=== PATIENT | female | born 1955 | race African-American/Black ===

== ENCOUNTER 2017-04-21 14:16 | Emergency (ER) | payer OTHER ==
[~2017-04-21] VITALS: Ht 152.4 cm; Wt 64.0 kg
[~2017-04-21 14:16] MED LIST: DIAZEPAM; FENTANYL; OMEPRAZOLE; VALIUM; VICODIN
[2017-04-21 14:31] VITALS: BP 130/83
== END 2017-04-21 19:19 | disposition left against medical advice (07) ==
LOC: ER 14:16
DX: G89.29 Other chronic pain (principal); M54.9 Dorsalgia, unspecified; Z53.21 Procedure and treatment not carried out due to patient leaving prior to being seen by health care provider

== ENCOUNTER 2017-05-11 20:57 | Emergency (ER) | payer OTHER ==
[~2017-05-11] VITALS: Ht 154.9 cm; Wt 63.0 kg
[2017-05-12] MEDS ORDERED: ONDANSETRON 4MG ODT PO STA (02:56)
[2017-05-12] MEDS ORDERED: KETOROLAC 30MG/ML VIAL IM STA (02:56)
[2017-05-12 03:36] LABS: BASOPHILS % 0.9 % (0.0-2.0); EOSINOPHILS % 1.3 % (0.0-5.0); HEMATOCRIT. 34.8 % (36.0-48.0); HEMOGLOBIN. 11.9 g/dL (12.0-16.0); LYMPHOCYTES % 26.8 % (20.0-50.0); MEAN CORPUSCULAR HEMOGLOBIN 30.5 pg (28.0-32.0); MEAN CORPUSCULAR VOLUME 89.5 fL (81.0-99.0); MONOCYTES % 5.4 % (2.0-8.0); NEUTROPHILS % 65.6 % (40.0-76.0); PLATELET 294 x1000/uL (130-400); RED BLOOD CELL COUNT 3.89 mill/uL (4.2-5.4); RED CELL DISTRIBUTION WIDTH 13.6 % (11.6-14.6)
[2017-05-12 03:43] LABS: PROTHROMBIN TIME 10.8 sec (9.4-11.6)
[2017-05-12 03:51] LABS: CARBON DIOXIDE 32 mEq/L (21-32); CHLORIDE 107 mEq/L (98-107)
[2017-05-12 04:02] LABS: CLARITY URINE CLEAR (CLEAR); COLOR URINE YELLOW (YELLOW); GLUCOSE URINE NEGATIVE (NEGATIVE); KETONES URINE NEGATIVE (NEGATIVE); LEUKOCYTE ESTERASE URINE TRACE (NEGATIVE); NITRITE URINE NEGATIVE (NEGATIVE); OCCULT BLOOD URINE NEGATIVE (NEGATIVE); PH URINE 6.5 (4.5-8.0); PROTEIN URINE NEGATIVE (NEGATIVE); SPECIFIC GRAVITY URINE 1.013 (1.005-1.030)
[2017-05-12] MEDS ORDERED: HYDROCODONE/ACETAMINOPHEN 10/325MG TABLET PO ONE (06:30)
[2017-05-12 09:33] VITALS: BP 162/82
== END 2017-05-12 09:35 | disposition home or self-care (01) ==
LOC: ER 20:57
DX: M54.2 Cervicalgia (principal); G89.29 Other chronic pain; M70.51 Other bursitis of knee, right knee; K58.9 Irritable bowel syndrome, unspecified; M79.89 Other specified soft tissue disorders; I10 Essential (primary) hypertension; F32.9 Major depressive disorder, single episode, unspecified; G62.9 Polyneuropathy, unspecified; Z98.890 Other specified postprocedural states; Y93.89 Activity, other specified
CPT/HCPCS: 36415; 80053; 81001; 85025; 85610; 93005; 93971; 96372; 99285; J1885; Q0162

== ENCOUNTER 2017-05-19 12:18 | Inpatient (IN) | payer OTHER ==
[~2017-05-19] VITALS: Ht 154.9 cm; Wt 64.0 kg
[2017-05-19 13:11] LABS: BASOPHILS % 0.6 % (0.0-2.0); EOSINOPHILS % 0.6 % (0.0-5.0); HEMATOCRIT. 37.6 % (36.0-48.0); HEMOGLOBIN. 12.9 g/dL (12.0-16.0); LYMPHOCYTES % 24.7 % (20.0-50.0); MEAN CORPUSCULAR HEMOGLOBIN 30.9 pg (28.0-32.0); MEAN CORPUSCULAR VOLUME 90.1 fL (81.0-99.0); MEAN PLATELET VOLUME 7.1 fl (7.4-10.4); MONOCYTES % 5.9 % (2.0-8.0); NEUTROPHILS % 68.2 % (40.0-76.0); PLATELET 342 x1000/uL (130-400); RED BLOOD CELL COUNT 4.17 mill/uL (4.2-5.4); RED CELL DISTRIBUTION WIDTH 14.1 % (11.6-14.6)
[2017-05-19 13:19] LABS: PROTHROMBIN TIME 10.7 sec (9.4-11.6)
[2017-05-19 13:23] LABS: CARBON DIOXIDE 27 mEq/L (21-32); CHLORIDE 106 mEq/L (98-107)
[2017-05-19 13:29] LABS: TROPONIN I 0.05 ng/mL (0.00-0.04)
[2017-05-19] MEDS ORDERED: DIPHENHYDRAMINE 50MG/ML VIAL IV PRN (15:15)
[2017-05-19] MEDS ORDERED: MAGNESIUM/ALUMINUM HYDROXIDE/SIMETHICONE 30ML UDC PO PRN (15:15)
[2017-05-19] MEDS ORDERED: CLONIDINE 0.1MG TABLET PO PRN (15:15)
[2017-05-19] MEDS ORDERED: DOCUSATE SODIUM 100MG CAPSULE PO PRN (15:15)
[2017-05-19] MEDS ORDERED: POTASSIUM CHLORIDE 20MEQ TABLET SR PO ONE (15:15)
[2017-05-19] MEDS ORDERED: ONDANSETRON HCL 4MG/2ML VIAL IV PRN (15:15)
[2017-05-19] MEDS ORDERED: GUAIFENESIN 200MG/10ML SUGAR FREE UDC PO PRN (15:15)
[2017-05-19] MEDS ORDERED: IPRATROPIUM/ALBUTEROL 0.5-3(2.5)MG/3ML NEB INH PRN (15:15)
[2017-05-19] MEDS: MORPHINE SULFATE 4 MG/ML CPJ (NOT FOR IM USE) IV PRN (15:32)
[2017-05-19 18:00] VITALS: BP 138/75
[2017-05-19 20:00] VITALS: BP 122/72
[2017-05-19] MEDS ORDERED: NA PHOS,M-B/NA PHOS,DI-BA ENEMA 118ML PR PRN (20:30)
[2017-05-19] MEDS ORDERED: ALPR0.25 PO (21:22)
[2017-05-19] MEDS ORDERED: AMLO10TA80 PO (21:22)
[2017-05-19] MEDS ORDERED: OMEP20TA15 PO (21:22)
[2017-05-19] MEDS ORDERED: TRIA1TAB94 PO (21:22)
[2017-05-19] MEDS ORDERED: FLUO20CA33 PO (21:22)
[2017-05-19] MEDS ORDERED: DIAZ10TA PO (21:22)
[2017-05-19] MEDS ORDERED: FENT1PAT4 TD (21:22)
[2017-05-19] MEDS ORDERED: HYDR-522 PO (21:22)
[2017-05-19] MEDS ORDERED: GABA-531 PO (21:22)
[2017-05-19] MEDS: SUCRALFATE 1 G/10 ML UDC PO SCH (22:26)
[2017-05-19] MEDS: TRAMADOL 50MG TABLET PO PRN (22:27)
[2017-05-19] MEDS: METOPROLOL TARTRATE 25MG TABLET PO SCH (22:27)
[2017-05-19] MEDS: ENOXAPARIN 40MG/0.4ML SYR SUBCUT SCH (22:28)
[2017-05-19] MEDS: FAMOTIDINE 20MG/2ML VIAL IV SCH (22:28)
[2017-05-19] MEDS: LORAZEPAM 2MG/ML CPJ IV PRN (23:44)
[2017-05-20] VITALS: BP 128/84
[2017-05-20 04:00] VITALS: BP 138/84
[2017-05-20] MEDS: MORPHINE SULFATE 4 MG/ML CPJ (NOT FOR IM USE) IV PRN ×5 (04:13→22:46)
[2017-05-20 04:49] LABS: *AMPHETAMINES SCREEN URINE NEGATIVE (NEGATIVE); *BARBITURATES SCREEN URINE NEGATIVE (NEGATIVE); *BENZODIAZEPINES SCREEN URINE PRESUMTIVE POSITIVE (NEGATIVE); *COCAINE SCREEN URINE NEGATIVE (NEGATIVE); CANNABINOID URINE SCREEN NEGATIVE (NEGATIVE); METHADONE URINE SCREEN NEGATIVE (NEGATIVE); OPIATES URINE SCREEN PRESUMTIVE POSITIVE (NEGATIVE); PHENCYCLIDINE URINE SCREEN NEGATIVE (NEGATIVE)
[2017-05-20 08:00] VITALS: BP 128/77
[2017-05-20 08:04] LABS: CREATINE KINASE MB FRACTION 1.7 ng/mL (0.5-3.6); TROPONIN I 0.05 ng/mL (0.00-0.04)
[2017-05-20] MEDS: SUCRALFATE 1 G/10 ML UDC PO SCH ×4 (08:34→21:18)
[2017-05-20] MEDS: AMLODIPINE 2.5MG TABLET PO SCH ×2 (08:36→08:38)
[2017-05-20] MEDS: POTASSIUM CHLORIDE 20MEQ TABLET SR PO SCH ×3 (08:36→16:33)
[2017-05-20] MEDS: ASPIRIN 325MG EC TABLET PO SCH (08:36)
[2017-05-20] MEDS: FAMOTIDINE 20MG/2ML VIAL IV SCH ×2 (08:36→21:19)
[2017-05-20] MEDS: METOPROLOL TARTRATE 25MG TABLET PO SCH (08:37)
[2017-05-20 12:00] VITALS: BP 130/79
[2017-05-20 13:19] LABS: BASOPHILS % 2.9 % (0.0-2.0); HEMATOCRIT. 34.8 % (36.0-48.0); HEMOGLOBIN. 11.6 g/dL (12.0-16.0); LYMPHOCYTES % 32.4 % (20.0-50.0); MEAN CORPUSCULAR HEMOGLOBIN 30.3 pg (28.0-32.0); MEAN PLATELET VOLUME 7.8 fl (7.4-10.4); MONOCYTES % 6.4 % (2.0-8.0); NEUTROPHILS % 57.3 % (40.0-76.0); PLATELET 304 x1000/uL (130-400); RED BLOOD CELL COUNT 3.83 mill/uL (4.2-5.4); RED CELL DISTRIBUTION WIDTH 14.3 % (11.6-14.6)
[2017-05-20 16:00] VITALS: BP 140/70
[2017-05-20 16:23] LABS: CARBON DIOXIDE 26 mEq/L (21-32); CHLORIDE 108 mEq/L (98-107)
[2017-05-20] MEDS: TRAMADOL 50MG TABLET PO PRN ×2 (17:16→21:19)
[2017-05-20 20:00] VITALS: BP 169/98
[2017-05-20] MEDS: AMLODIPINE 5MG TABLET PO SCH (21:18)
[2017-05-20] MEDS: ATORVASTATIN CALCIUM 10MG TABLET PO SCH (21:19)
[2017-05-20] MEDS: ENOXAPARIN 40MG/0.4ML SYR SUBCUT SCH (21:20)
[2017-05-21] VITALS: BP 150/88
[2017-05-21] MEDS: LORAZEPAM 2MG/ML CPJ IV PRN (00:29)
[2017-05-21 04:00] VITALS: BP 129/86
[2017-05-21 06:07] LABS: BASOPHILS % 0.7 % (0.0-2.0); EOSINOPHILS % 1.1 % (0.0-5.0); HEMATOCRIT. 34.9 % (36.0-48.0); HEMOGLOBIN. 11.8 g/dL (12.0-16.0); MEAN CORPUSCULAR HEMOGLOBIN 30.5 pg (28.0-32.0); MEAN CORPUSCULAR VOLUME 90.2 fL (81.0-99.0); MEAN PLATELET VOLUME 7.4 fl (7.4-10.4); MONOCYTES % 6.3 % (2.0-8.0); NEUTROPHILS % 60.9 % (40.0-76.0); PLATELET 286 x1000/uL (130-400); RED BLOOD CELL COUNT 3.87 mill/uL (4.2-5.4)
[2017-05-21 07:54] LABS: CARBON DIOXIDE 25 mEq/L (21-32); CHLORIDE 108 mEq/L (98-107); TROPONIN I 0.05 ng/mL (0.00-0.04)
[2017-05-21 08:00] VITALS: BP 182/94
[2017-05-21] MEDS: ASPIRIN 325MG EC TABLET PO SCH (09:39)
[2017-05-21] MEDS: FAMOTIDINE 20MG/2ML VIAL IV SCH ×2 (09:39→21:29)
[2017-05-21] MEDS: SUCRALFATE 1 G/10 ML UDC PO SCH ×4 (09:39→21:29)
[2017-05-21] MEDS: AMLODIPINE 5MG TABLET PO SCH ×2 (09:40→21:30)
[2017-05-21] MEDS: POTASSIUM CHLORIDE 20MEQ TABLET SR PO SCH ×2 (09:45→17:41)
[2017-05-21] MEDS: TRAMADOL 50MG TABLET PO PRN (09:46)
[2017-05-21] MEDS: MORPHINE SULFATE 4 MG/ML CPJ (NOT FOR IM USE) IV PRN ×3 (10:49→21:35)
[2017-05-21 12:00] VITALS: BP 147/81
[2017-05-21 16:00] VITALS: BP 150/84
[2017-05-21 20:00] VITALS: BP 146/97
[2017-05-21] MEDS: ATORVASTATIN CALCIUM 10MG TABLET PO SCH (21:30)
[2017-05-21] MEDS: ENOXAPARIN 40MG/0.4ML SYR SUBCUT SCH (21:31)
[2017-05-21] MEDS: FLUOXETINE HCL 20MG CAPSULE PO SCH (21:32)
[2017-05-22] VITALS: BP 157/93
[2017-05-22] MEDS: ZOLPIDEM TARTRATE 5MG TABLET PO PRN ×2 (01:03→23:54)
[2017-05-22] MEDS: MORPHINE SULFATE 4 MG/ML CPJ (NOT FOR IM USE) IV PRN ×4 (03:06→21:38)
[2017-05-22 04:00] VITALS: BP 155/90
[2017-05-22 07:40] LABS: BASOPHILS % 0.3 % (0.0-2.0); HEMATOCRIT. 35.9 % (36.0-48.0); HEMOGLOBIN. 12.2 g/dL (12.0-16.0); LYMPHOCYTES % 27.6 % (20.0-50.0); MEAN CORPUSCULAR HEMOGLOBIN 30.6 pg (28.0-32.0); MEAN CORPUSCULAR VOLUME 89.8 fL (81.0-99.0); MEAN PLATELET VOLUME 7.4 fl (7.4-10.4); MONOCYTES % 5.2 % (2.0-8.0); NEUTROPHILS % 65.9 % (40.0-76.0); PLATELET 295 x1000/uL (130-400); RED CELL DISTRIBUTION WIDTH 13.7 % (11.6-14.6)
[2017-05-22 08:00] VITALS: BP 164/95
[2017-05-22 08:27] LABS: CARBON DIOXIDE 24 mEq/L (21-32); CHLORIDE 107 mEq/L (98-107)
[2017-05-22] MEDS ORDERED: CLONIDINE 0.1MG TABLET PO PRN (09:00)
[2017-05-22] MEDS: SUCRALFATE 1 G/10 ML UDC PO SCH ×4 (09:39→21:34)
[2017-05-22] MEDS: FAMOTIDINE 20MG/2ML VIAL IV SCH ×2 (09:40→21:35)
[2017-05-22] MEDS: ASPIRIN 325MG EC TABLET PO SCH (09:40)
[2017-05-22] MEDS: POTASSIUM CHLORIDE 20MEQ TABLET SR PO SCH ×2 (09:40→16:43)
[2017-05-22] MEDS: AMLODIPINE 5MG TABLET PO SCH ×2 (09:41→21:34)
[2017-05-22 12:00] VITALS: BP 158/78
[2017-05-22] MEDS ORDERED: LORAZEPAM 2MG/ML CPJ IV NR (12:30)
[2017-05-22] MEDS: MORPHINE SULFATE 4 MG/ML CPJ (NOT FOR IM USE) IV NR ×2 (12:39→16:44)
[2017-05-22 16:00] VITALS: BP 168/80
[2017-05-22 20:00] VITALS: BP 140/76
[2017-05-22] MEDS: ATORVASTATIN CALCIUM 10MG TABLET PO SCH (21:34)
[2017-05-22] MEDS: LISINOPRIL 20MG TABLET PO SCH (21:34)
[2017-05-22] MEDS: FLUOXETINE HCL 20MG CAPSULE PO SCH (21:34)
[2017-05-22] MEDS: ENOXAPARIN 40MG/0.4ML SYR SUBCUT SCH (21:35)
[2017-05-23] VITALS: BP 136/88
[2017-05-23] MEDS: MORPHINE SULFATE 4 MG/ML CPJ (NOT FOR IM USE) IV PRN ×5 (01:38→20:14)
[2017-05-23 04:00] VITALS: BP 134/70
[2017-05-23 08:00] VITALS: BP 131/81
[2017-05-23] MEDS: SUCRALFATE 1 G/10 ML UDC PO SCH ×4 (08:34→20:12)
[2017-05-23] MEDS: AMLODIPINE 5MG TABLET PO SCH ×2 (08:35→20:12)
[2017-05-23] MEDS: POTASSIUM CHLORIDE 20MEQ TABLET SR PO SCH ×2 (08:35→15:24)
[2017-05-23] MEDS: ASPIRIN 325MG EC TABLET PO SCH (08:35)
[2017-05-23] MEDS: LISINOPRIL 20MG TABLET PO SCH ×2 (08:35→20:25)
[2017-05-23] MEDS: FAMOTIDINE 20MG/2ML VIAL IV SCH ×2 (08:37→20:12)
[2017-05-23] MEDS ORDERED: BISACODYL 10MG SUPP PR PRN (11:30)
[2017-05-23 12:00] VITALS: BP 147/74
[2017-05-23] MEDS: LACTULOSE 20G/30ML UDC PO SCH ×3 (13:46→20:11)
[2017-05-23] MEDS: DOCUSATE SODIUM 100MG CAPSULE PO SCH (15:24)
[2017-05-23 16:00] VITALS: BP 149/76
[2017-05-23 20:00] VITALS: BP 133/79
[2017-05-23] MEDS: POLYETHYLENE GLYCOL 3350 (17GM) 1 DOSE PACK PO SCH (20:12)
[2017-05-23] MEDS: ATORVASTATIN CALCIUM 10MG TABLET PO SCH (20:12)
[2017-05-23] MEDS: FLUOXETINE HCL 20MG CAPSULE PO SCH (20:12)
[2017-05-23] MEDS: ENOXAPARIN 40MG/0.4ML SYR SUBCUT SCH (20:25)
[2017-05-24 00:05] VITALS: BP 130/73
[2017-05-24 04:00] VITALS: BP 129/77
[2017-05-24 06:44] LABS: BASOPHILS % 0.4 % (0.0-2.0); EOSINOPHILS % 1.3 % (0.0-5.0); HEMATOCRIT. 35.5 % (36.0-48.0); HEMOGLOBIN. 12.1 g/dL (12.0-16.0); LYMPHOCYTES % 20.3 % (20.0-50.0); MEAN CORPUSCULAR HEMOGLOBIN 30.7 pg (28.0-32.0); MEAN CORPUSCULAR VOLUME 90.2 fL (81.0-99.0); MEAN PLATELET VOLUME 7.6 fl (7.4-10.4); MONOCYTES % 5.6 % (2.0-8.0); NEUTROPHILS % 72.4 % (40.0-76.0); PLATELET 291 x1000/uL (130-400); RED BLOOD CELL COUNT 3.94 mill/uL (4.2-5.4); RED CELL DISTRIBUTION WIDTH 13.8 % (11.6-14.6)
[2017-05-24 07:34] LABS: CARBON DIOXIDE 27 mEq/L (21-32); CHLORIDE 109 mEq/L (98-107)
[2017-05-24 08:00] VITALS: BP 137/89
[2017-05-24] MEDS: MORPHINE SULFATE 4 MG/ML CPJ (NOT FOR IM USE) IV PRN ×2 (08:58→14:02)
[2017-05-24] MEDS: SUCRALFATE 1 G/10 ML UDC PO SCH ×4 (08:58→21:00)
[2017-05-24] MEDS: LISINOPRIL 20MG TABLET PO SCH ×2 (08:59→21:00)
[2017-05-24] MEDS: DOCUSATE SODIUM 100MG CAPSULE PO SCH ×3 (08:59→17:00)
[2017-05-24] MEDS: AMLODIPINE 5MG TABLET PO SCH ×2 (08:59→21:01)
[2017-05-24] MEDS: POTASSIUM CHLORIDE 20MEQ TABLET SR PO SCH ×2 (08:59→17:50)
[2017-05-24] MEDS: ASPIRIN 325MG EC TABLET PO SCH (08:59)
[2017-05-24] MEDS: FAMOTIDINE 20MG/2ML VIAL IV SCH ×2 (08:59→21:00)
[2017-05-24] MEDS: LORAZEPAM 2MG/ML CPJ IV PRN (08:59)
[2017-05-24 12:00] VITALS: BP 159/88
[2017-05-24 16:00] VITALS: BP 148/86
[2017-05-24] MEDS: TRAMADOL 50MG TABLET PO PRN (17:50)
[2017-05-24] MEDS: DEXAMETHASONE 4MG/ML 1ML VIAL IV SCH (17:50)
[2017-05-24 20:00] VITALS: BP 167/78
[2017-05-24] MEDS: FLUOXETINE HCL 20MG CAPSULE PO SCH (21:00)
[2017-05-24] MEDS: POLYETHYLENE GLYCOL 3350 (17GM) 1 DOSE PACK PO SCH (21:00)
[2017-05-24] MEDS: ATORVASTATIN CALCIUM 10MG TABLET PO SCH (21:01)
[2017-05-24] MEDS: CLONIDINE 0.1MG TABLET PO PRN (21:01)
[2017-05-25] VITALS (7 sets, daily range): BP systolic 144–182; BP diastolic 82–107
[2017-05-25] MEDS: DEXAMETHASONE 4MG/ML 1ML VIAL IV SCH ×5 (00:43→23:20)
[2017-05-25] MEDS: TRAMADOL 50MG TABLET PO PRN ×4 (00:45→20:58)
[2017-05-25] MEDS: LISINOPRIL 20MG TABLET PO SCH ×2 (08:53→20:57)
[2017-05-25] MEDS: SUCRALFATE 1 G/10 ML UDC PO SCH ×4 (08:53→20:57)
[2017-05-25] MEDS: FAMOTIDINE 20MG/2ML VIAL IV SCH ×2 (08:53→20:57)
[2017-05-25] MEDS: AMLODIPINE 5MG TABLET PO SCH ×2 (08:54→20:58)
[2017-05-25] MEDS: ACETAMINOPHEN 325MG TABLET PO PRN ×2 (08:54→15:01)
[2017-05-25] MEDS: POTASSIUM CHLORIDE 20MEQ TABLET SR PO SCH ×2 (08:55→17:00)
[2017-05-25] MEDS: DOCUSATE SODIUM 100MG CAPSULE PO SCH ×2 (08:55→17:00)
[2017-05-25] MEDS ORDERED: CLONIDINE 0.1MG TABLET PO PRN (13:45)
[2017-05-25] MEDS ORDERED: HYDRALAZINE 20MG/ML VIAL IV PRN (13:45)
[2017-05-25] MEDS: ATORVASTATIN CALCIUM 10MG TABLET PO SCH (20:57)
[2017-05-25] MEDS: FLUOXETINE HCL 20MG CAPSULE PO SCH (20:57)
[2017-05-25] MEDS: POLYETHYLENE GLYCOL 3350 (17GM) 1 DOSE PACK PO SCH (20:58)
[2017-05-26 04:00] VITALS: BP 142/78
[2017-05-26] MEDS: TRAMADOL 50MG TABLET PO PRN ×2 (04:20→12:23)
[2017-05-26] MEDS: DEXAMETHASONE 4MG/ML 1ML VIAL IV SCH ×2 (05:26→12:22)
[2017-05-26 08:00] VITALS: BP 126/61
[2017-05-26] MEDS: AMLODIPINE 5MG TABLET PO SCH (10:07)
[2017-05-26] MEDS: POTASSIUM CHLORIDE 20MEQ TABLET SR PO SCH (10:07)
[2017-05-26] MEDS: DOCUSATE SODIUM 100MG CAPSULE PO SCH (10:07)
[2017-05-26] MEDS: SUCRALFATE 1 G/10 ML UDC PO SCH ×2 (10:07→13:36)
[2017-05-26] MEDS: LISINOPRIL 20MG TABLET PO SCH (10:08)
[2017-05-26] MEDS: FAMOTIDINE 20MG/2ML VIAL IV SCH (10:08)
[2017-05-26 12:00] VITALS: BP 160/90
[2017-05-26] MEDS: CLONIDINE 0.1MG TABLET PO PRN (14:32)
[2017-05-26 16:00] VITALS: BP 166/85
[2017-05-26 16:01] VITALS: BP 146/86
== END 2017-05-26 16:35 | DRG 551 ==
LOC: ER 13:04 → 7WST 14:32 → EDBEDREQ 14:35 → ENRESERV 16:50 → 7WST 05-21 08:32
PROVIDERS: ADMIT Internal Medicine; ATTEND Internal Medicine
DX: M48.02 Spinal stenosis, cervical region (principal); G82.50 Quadriplegia, unspecified; G95.20 Unspecified cord compression; E87.5 Hyperkalemia; W19.XXXA Unspecified fall, initial encounter; I11.9 Hypertensive heart disease without heart failure; F32.9 Major depressive disorder, single episode, unspecified; E87.6 Hypokalemia; R07.89 Other chest pain; M06.9 Rheumatoid arthritis, unspecified; F17.210 Nicotine dependence, cigarettes, uncomplicated; F41.9 Anxiety disorder, unspecified; K57.90 Diverticulosis of intestine, part unspecified, without perforation or abscess without bleeding; E78.5 Hyperlipidemia, unspecified; M51.9 Unspecified thoracic, thoracolumbar and lumbosacral intervertebral disc disorder; E78.00 Pure hypercholesterolemia, unspecified; M17.9 Osteoarthritis of knee, unspecified; D64.9 Anemia, unspecified; Z53.20 Procedure and treatment not carried out because of patient's decision for unspecified reasons; G89.4 Chronic pain syndrome; R00.1 Bradycardia, unspecified; M25.512 Pain in left shoulder; M48.06 Spinal stenosis, lumbar region; R29.6 Repeated falls; Y92.238 Other place in hospital as the place of occurrence of the external cause; Y93.89 Activity, other specified; Y99.8 Other external cause status; Z82.49 Family history of ischemic heart disease and other diseases of the circulatory system; Z79.82 Long term (current) use of aspirin; Z91.81 History of falling; Z98.1 Arthrodesis status; Z71.6 Tobacco abuse counseling; Z90.49 Acquired absence of other specified parts of digestive tract
CPT/HCPCS: 36415; 70450; 70486; 71010; 72141; 72148; 73030; 73560; 73562; 73590; 80048; 80053; 80061; 80305; 82550; 82553; 83036; 83735; 83880; 84443; 84484; 85025; 85379; 85610; 93005; 93306; 93880; 93970; 96374; 96375; 97162; 99285; J1100; J1650; J2060; J2270; J3490

== ENCOUNTER 2017-07-15 10:36 | Inpatient (IN) | payer OTHER ==
[~2017-07-15] VITALS: Ht 160 cm; Wt 59.9 kg
[2017-07-15] VITALS (11 sets, daily range): BP systolic 111–167; BP diastolic 59–84
[~2017-07-15 10:36] MED LIST changes: +ALPR0.25 PO; +AMLO10TA80 PO; +DIAZ10TA PO; +FENT1PAT4 TD; -FENTANYL; +FLUO20CA33 PO; +GABA-531 PO; +HYDR-522 PO; +OMEP20TA15 PO; +TRIA1TAB94 PO; -VALIUM
[2017-07-15] MEDS ORDERED: PIPERACILLIN/TAZ 3.375G PREMIX 50 ML IV ONE (11:45)
[2017-07-15] MEDS ORDERED: SODIUM CHLORIDE 0.9% 1000ML BAG (SEPSIS BOLUS) IV ONE (11:45)
[2017-07-15] MEDS ORDERED: VANCOMYCIN 1 G PREMIX 200 ML IV ONE (11:45)
[2017-07-15 12:05] LABS: BASOPHILS % 0.3 % (0.0-2.0); HEMATOCRIT. 37.9 % (36.0-48.0); HEMOGLOBIN. 12.3 g/dL (12.0-16.0); LYMPHOCYTES % 7.9 % (20.0-50.0); MEAN CORPUSCULAR HEMOGLOBIN 30.8 pg (28.0-32.0); MEAN CORPUSCULAR VOLUME 95.1 fL (81.0-99.0); MEAN PLATELET VOLUME 7.9 fl (7.4-10.4); MONOCYTES % 2.9 % (2.0-8.0); NEUTROPHILS % 88.9 % (40.0-76.0); PLATELET 184 x1000/uL (130-400); RED BLOOD CELL COUNT 3.99 mill/uL (4.2-5.4); RED CELL DISTRIBUTION WIDTH 14.9 % (11.6-14.6)
[2017-07-15 12:12] LABS: PROTHROMBIN TIME 10.7 sec (9.4-11.6)
[2017-07-15 12:23] LABS: CARBON DIOXIDE 19 mEq/L (21-32); CHLORIDE 106 mEq/L (98-107); TROPONIN I 0.09 ng/mL (0.00-0.04)
[2017-07-15] MEDS ORDERED: POTASSIUM CHLORIDE 20MEQ TABLET SR PO ONE (12:30)
[2017-07-15] MEDS ORDERED: INSULIN REGULAR (HUMULIN R) 300UNITS/3ML SUBCUT ONE (12:30)
[2017-07-15 12:55] LABS: BG BASE EXCESS -9.4 mmol/L (-2.0-2.0); BG CARBOXYHEMOGLOBIN 0.2 % (0.5-1.5); BG DEOXYHEMOGLOBIN 4.9 % (0.0-5.0); BG HCO3 ACT 13.6 mmol/L (22.0-26.0); BG METHEMOGLOBIN 0.3 % (0.0-1.5); BG OXYGEN SATURATION 95.1 % (92.0-98.5); BG OXYHEMOGLOBIN 94.6 % (94.0-97.0); BG PCO2 23.1 mmHg (35.0-45.0); BG PH 7.389 (7.350-7.450); BG PO2 83.7 mmHg (75.0-100.0); BG SAMPLE SITE RIGHT RADIAL; BG TOTAL HEMOGLOBIN 12.6 g/dL (12.0-18.0); BG VENT MODE ROOM AIR
[2017-07-15] MEDS ORDERED: INSULIN REGULAR (DRIP) 100 UNITS in SODIUM CHLORIDE 0.9% 99 ML IV SCH ×2 (14:00→17:15)
[2017-07-15] MEDS ORDERED: HYDRALAZINE 20MG/ML VIAL IV ONE (14:15)
[2017-07-15] MEDS ORDERED: INSULIN REGULAR (DRIP) 100 UNITS in SODIUM CHLORIDE 0.9% 99 ML IV ONE (14:30)
[2017-07-15] MEDS ORDERED: ACETAMINOPHEN 325MG TABLET PO PRN (16:00)
[2017-07-15] MEDS ORDERED: GUAIFENESIN 200MG/10ML SUGAR FREE UDC PO PRN (16:00)
[2017-07-15] MEDS ORDERED: DOCUSATE SODIUM 100MG CAPSULE PO PRN (16:00)
[2017-07-15] MEDS ORDERED: DIPHENHYDRAMINE 50MG/ML VIAL IV PRN (16:00)
[2017-07-15] MEDS ORDERED: POTASSIUM CHLORIDE 20MEQ TABLET SR PO NR (16:00)
[2017-07-15] MEDS ORDERED: NITROGLYCERIN 0.4MG TABLET SL SL PRN (16:00)
[2017-07-15] MEDS ORDERED: IPRATROPIUM/ALBUTEROL 0.5-3(2.5)MG/3ML NEB INH PRN (16:00)
[2017-07-15] MEDS ORDERED: DEXTROSE 50% WATER 50ML SYRINGE IV PRN (16:00)
[2017-07-15] MEDS ORDERED: TRAMADOL 50MG TABLET PO PRN (16:00)
[2017-07-15] MEDS ORDERED: ONDANSETRON HCL 4MG/2ML VIAL IV PRN (16:00)
[2017-07-15] MEDS ORDERED: LORAZEPAM 2MG/ML CPJ IV PRN (16:00)
[2017-07-15] MEDS ORDERED: KCL 20MEQ/100ML PREMIX 100 ML IV ONE (16:30)
[2017-07-15 16:31] LABS: CARBON DIOXIDE 18 mEq/L (21-32); CHLORIDE 112 mEq/L (98-107)
[2017-07-15] MEDS ORDERED: NA PHOS,M-B/NA PHOS,DI-BA ENEMA 118ML PR PRN (17:00)
[2017-07-15] MEDS ORDERED: SODIUM CHLORIDE 0.9% 1,000 ML IV ONE (17:09)
[2017-07-15] MEDS ORDERED: LEVOFLOXACIN 500MG PREMIX 100 ML IV NR (20:30)
[2017-07-15] MEDS ORDERED: SODIUM CHLORIDE 0.45% 1,000 ML IV ONE (22:00)
[2017-07-15] MEDS: HYDRALAZINE HCL 50MG TABLET PO SCH (22:00)
[2017-07-15] MEDS: BLOOD SUGAR DIAGNOSTIC STRIP TEST SCH (22:00)
[2017-07-15] MEDS: INSULIN LISPRO 100 UNITS/ML SUBCUT SCH (23:16)
[2017-07-15] MEDS: INSULIN DETEMIR UD 100 UNITS/ML SYR SUBCUT SCH (23:17)
[2017-07-16] VITALS (49 sets, daily range): BP systolic 100–166; BP diastolic 58–102
[2017-07-16] MEDS: SODIUM CHL 0.45% + KCL 20MEQ/L 1,000 ML IV SCH ×4 (00:12→21:57)
[2017-07-16] MEDS: CEFTRIAXONE 1 G PREMIX 50 ML IV SCH ×2 (00:14→23:39)
[2017-07-16] MEDS: MORPHINE SULFATE 2 MG/ML CPJ (NOT FOR IM USE) IV PRN ×2 (03:27→20:32)
[2017-07-16 05:33] LABS: BASOPHILS % 0.3 % (0.0-2.0); EOSINOPHILS % 0.1 % (0.0-5.0); HEMATOCRIT. 31.2 % (36.0-48.0); HEMOGLOBIN. 10.8 g/dL (12.0-16.0); LYMPHOCYTES % 11.5 % (20.0-50.0); MEAN CORPUSCULAR HEMOGLOBIN 31.5 pg (28.0-32.0); MEAN PLATELET VOLUME 7.8 fl (7.4-10.4); MONOCYTES % 3.5 % (2.0-8.0); NEUTROPHILS % 84.6 % (40.0-76.0); PLATELET 141 x1000/uL (130-400); RED BLOOD CELL COUNT 3.43 mill/uL (4.2-5.4); RED CELL DISTRIBUTION WIDTH 14.5 % (11.6-14.6)
[2017-07-16 05:43] LABS: CARBON DIOXIDE 25 mEq/L (21-32); CHLORIDE 116 mEq/L (98-107)
[2017-07-16] MEDS: HYDRALAZINE HCL 50MG TABLET PO SCH ×3 (06:00→21:58)
[2017-07-16] MEDS: BLOOD SUGAR DIAGNOSTIC STRIP TEST SCH ×4 (07:50→20:13)
[2017-07-16] MEDS ORDERED: POTASSIUM CHLORIDE 20MEQ/PACKET PO NR (08:00)
[2017-07-16] MEDS: INSULIN LISPRO 100 UNITS/ML SUBCUT SCH ×3 (08:20→20:38)
[2017-07-16] MEDS ORDERED: KCL 20MEQ/100ML PREMIX 100 ML IV NR (09:00)
[2017-07-16] MEDS: ENOXAPARIN 40MG/0.4ML SYR SUBCUT SCH (09:00)
[2017-07-16] MEDS: PANTOPRAZOLE SODIUM 40 MG/VIAL IV SCH (09:13)
[2017-07-16] MEDS: SUCRALFATE 1 G/10 ML UDC PO SCH ×4 (09:13→20:31)
[2017-07-16] MEDS: AMLODIPINE 10MG TABLET PO SCH (09:16)
[2017-07-16] MEDS ORDERED: MAGNESIUM 1 G PREMIX 100 ML IV NR (16:12)
[2017-07-16] MEDS: NYSTATIN POWDER 15GM TOP SCH (21:57)
[2017-07-16] MEDS: LEVOFLOXACIN 500MG PREMIX 100 ML IV SCH (22:01)
[2017-07-16] MEDS: KETOROLAC 15MG/ML VIAL IV PRN (23:39)
[2017-07-16] MEDS: INSULIN DETEMIR UD 100 UNITS/ML SYR SUBCUT SCH (23:46)
[2017-07-17 04:00] VITALS: BP 110/74
[2017-07-17] MEDS: SODIUM CHL 0.45% + KCL 20MEQ/L 1,000 ML IV SCH ×3 (05:06→18:07)
[2017-07-17] MEDS: HYDRALAZINE HCL 50MG TABLET PO SCH ×3 (05:07→21:32)
[2017-07-17] MEDS: BLOOD SUGAR DIAGNOSTIC STRIP TEST SCH ×4 (06:10→21:37)
[2017-07-17] MEDS: SUCRALFATE 1 G/10 ML UDC PO SCH ×4 (06:17→20:21)
[2017-07-17] MEDS: INSULIN LISPRO 100 UNITS/ML SUBCUT SCH ×4 (07:06→21:36)
[2017-07-17 08:00] VITALS: BP 108/67
[2017-07-17] MEDS: PANTOPRAZOLE SODIUM 40 MG/VIAL IV SCH (08:16)
[2017-07-17] MEDS: AMLODIPINE 10MG TABLET PO SCH (08:17)
[2017-07-17] MEDS: ENOXAPARIN 40MG/0.4ML SYR SUBCUT SCH (08:17)
[2017-07-17] MEDS: NYSTATIN POWDER 15GM TOP SCH ×2 (08:18→16:49)
[2017-07-17] MEDS: MORPHINE SULFATE 2 MG/ML CPJ (NOT FOR IM USE) IV PRN ×2 (08:19→20:28)
[2017-07-17] MEDS: SILVER SULFADIAZINE 1% CREAM 50GM TOP SCH (08:25)
[2017-07-17 12:00] VITALS: BP 106/61
[2017-07-17 14:28] LABS: CARBON DIOXIDE 24 mEq/L (21-32); CHLORIDE 111 mEq/L (98-107)
[2017-07-17 16:00] VITALS: BP 127/77
[2017-07-17 20:00] VITALS: BP 133/83
[2017-07-17] MEDS: LEVOFLOXACIN 500MG PREMIX 100 ML IV SCH (20:21)
[2017-07-17] MEDS: CEFTRIAXONE 1 G PREMIX 50 ML IV SCH (21:31)
[2017-07-17] MEDS: ZOLPIDEM TARTRATE 5MG TABLET PO PRN (21:32)
[2017-07-17] MEDS ORDERED: INSULIN DETEMIR UD 100 UNITS/ML SYR SUBCUT NR (23:30)
[2017-07-18] VITALS: BP 112/76
[2017-07-18] MEDS: SODIUM CHL 0.45% + KCL 20MEQ/L 1,000 ML IV SCH ×4 (00:58→23:08)
[2017-07-18] MEDS: MORPHINE SULFATE 2 MG/ML CPJ (NOT FOR IM USE) IV PRN ×3 (03:27→17:49)
[2017-07-18 04:00] VITALS: BP 146/80
[2017-07-18] MEDS: SUCRALFATE 1 G/10 ML UDC PO SCH ×4 (06:02→20:23)
[2017-07-18] MEDS: HYDRALAZINE HCL 50MG TABLET PO SCH ×3 (06:03→21:31)
[2017-07-18] MEDS: KETOROLAC 15MG/ML VIAL IV PRN (06:07)
[2017-07-18] MEDS: BLOOD SUGAR DIAGNOSTIC STRIP TEST SCH ×4 (06:39→20:24)
[2017-07-18] MEDS: INSULIN LISPRO 100 UNITS/ML SUBCUT SCH ×4 (06:39→20:31)
[2017-07-18 08:00] VITALS: BP 136/79
[2017-07-18] MEDS: NYSTATIN POWDER 15GM TOP SCH ×2 (08:50→16:07)
[2017-07-18] MEDS: SILVER SULFADIAZINE 1% CREAM 50GM TOP SCH (08:50)
[2017-07-18] MEDS: AMLODIPINE 10MG TABLET PO SCH (08:51)
[2017-07-18] MEDS: ENOXAPARIN 40MG/0.4ML SYR SUBCUT SCH (08:51)
[2017-07-18] MEDS: FAMOTIDINE 20MG TABLET PO SCH ×2 (08:51→20:23)
[2017-07-18 12:00] VITALS: BP 128/81
[2017-07-18] MEDS: LEVOFLOXACIN 500MG TABLET PO SCH (12:54)
[2017-07-18 16:00] VITALS: BP 125/58
[2017-07-18 20:00] VITALS: BP 114/76
[2017-07-18] MEDS: CEFTRIAXONE 1 G PREMIX 50 ML IV SCH (20:23)
[2017-07-18] MEDS: ZOLPIDEM TARTRATE 5MG TABLET PO PRN (21:31)
[2017-07-18] MEDS ORDERED: INSULIN DETEMIR UD 100 UNITS/ML SYR SUBCUT SCH (22:00)
[2017-07-19] VITALS: BP 118/88
[2017-07-19] MEDS: MORPHINE SULFATE 2 MG/ML CPJ (NOT FOR IM USE) IV PRN ×4 (00:37→20:28)
[2017-07-19 04:00] VITALS: BP 127/88
[2017-07-19] MEDS: HYDRALAZINE HCL 50MG TABLET PO SCH ×3 (05:22→22:06)
[2017-07-19] MEDS: BLOOD SUGAR DIAGNOSTIC STRIP TEST SCH ×4 (06:11→20:14)
[2017-07-19] MEDS: SODIUM CHL 0.45% + KCL 20MEQ/L 1,000 ML IV SCH (06:11)
[2017-07-19] MEDS: SUCRALFATE 1 G/10 ML UDC PO SCH ×4 (06:11→20:18)
[2017-07-19] MEDS: INSULIN LISPRO 100 UNITS/ML SUBCUT SCH ×4 (06:33→20:14)
[2017-07-19 08:00] VITALS: BP 109/72
[2017-07-19] MEDS: AMLODIPINE 10MG TABLET PO SCH (08:20)
[2017-07-19] MEDS: SILVER SULFADIAZINE 1% CREAM 50GM TOP SCH (08:43)
[2017-07-19] MEDS: LEVOFLOXACIN 500MG TABLET PO SCH (08:43)
[2017-07-19] MEDS: FAMOTIDINE 20MG TABLET PO SCH ×2 (08:43→20:18)
[2017-07-19] MEDS: NYSTATIN POWDER 15GM TOP SCH ×2 (08:43→18:16)
[2017-07-19] MEDS: ENOXAPARIN 40MG/0.4ML SYR SUBCUT SCH (08:43)
[2017-07-19 12:00] VITALS: BP 112/82
[2017-07-19 16:00] VITALS: BP 130/86
[2017-07-19 19:53] VITALS: BP 124/86
[2017-07-19] MEDS: CEFTRIAXONE 1 G PREMIX 50 ML IV SCH (20:18)
[2017-07-19] MEDS: INSULIN DETEMIR UD 100 UNITS/ML SYR SUBCUT SCH (22:15)
[2017-07-20] VITALS: BP_SYST 121; BP_SYST 122; BP_DIAS 74; BP_DIAS 80
[2017-07-20 04:00] VITALS: BP 118/76
[2017-07-20] MEDS: HYDRALAZINE HCL 50MG TABLET PO SCH ×3 (06:16→21:26)
[2017-07-20] MEDS: SUCRALFATE 1 G/10 ML UDC PO SCH ×4 (06:17→21:22)
[2017-07-20] MEDS: BLOOD SUGAR DIAGNOSTIC STRIP TEST SCH ×4 (06:18→21:01)
[2017-07-20] MEDS: MORPHINE SULFATE 2 MG/ML CPJ (NOT FOR IM USE) IV PRN ×3 (06:18→21:27)
[2017-07-20] MEDS: INSULIN LISPRO 100 UNITS/ML SUBCUT SCH ×4 (06:19→21:00)
[2017-07-20 07:32] VITALS: BP 123/89
[2017-07-20] MEDS: SILVER SULFADIAZINE 1% CREAM 50GM TOP SCH (08:19)
[2017-07-20] MEDS: NYSTATIN POWDER 15GM TOP SCH ×2 (08:19→17:28)
[2017-07-20] MEDS: FAMOTIDINE 20MG TABLET PO SCH ×2 (08:21→21:22)
[2017-07-20] MEDS: ENOXAPARIN 40MG/0.4ML SYR SUBCUT SCH (08:21)
[2017-07-20] MEDS: AMLODIPINE 10MG TABLET PO SCH (08:21)
[2017-07-20] MEDS: LEVOFLOXACIN 500MG TABLET PO SCH (11:04)
[2017-07-20 11:37] VITALS: BP 143/78
[2017-07-20] MEDS: KETOROLAC 15MG/ML VIAL IV PRN (15:25)
[2017-07-20 16:00] VITALS: BP 108/67
[2017-07-20] MEDS ORDERED: KETOROLAC 30MG/ML VIAL IV PRN (18:00)
[2017-07-20] MEDS ORDERED: LORAZEPAM 2MG/ML CPJ IV PRN (18:00)
[2017-07-20] MEDS ORDERED: KETOROLAC 15MG/ML VIAL IV PRN (18:00)
[2017-07-20] MEDS ORDERED: LORAZEPAM 0.5MG TABLET PO PRN (18:15)
[2017-07-20] MEDS: CEFTRIAXONE 1 G PREMIX 50 ML IV SCH (21:22)
[2017-07-20] MEDS: INSULIN DETEMIR UD 100 UNITS/ML SYR SUBCUT SCH (21:38)
[2017-07-21] VITALS (7 sets, daily range): BP systolic 114–128; BP diastolic 74–98
[2017-07-21] MEDS: MORPHINE SULFATE 2 MG/ML CPJ (NOT FOR IM USE) IV PRN ×3 (03:50→13:42)
[2017-07-21] MEDS: BLOOD SUGAR DIAGNOSTIC STRIP TEST SCH ×3 (05:51→17:03)
[2017-07-21] MEDS: INSULIN LISPRO 100 UNITS/ML SUBCUT SCH ×3 (05:51→17:04)
[2017-07-21] MEDS: HYDRALAZINE HCL 50MG TABLET PO SCH ×2 (05:52→14:00)
[2017-07-21] MEDS: SUCRALFATE 1 G/10 ML UDC PO SCH ×3 (06:22→17:23)
[2017-07-21] MEDS: FAMOTIDINE 20MG TABLET PO SCH (08:36)
[2017-07-21] MEDS: AMLODIPINE 10MG TABLET PO SCH (08:37)
[2017-07-21] MEDS: ENOXAPARIN 40MG/0.4ML SYR SUBCUT SCH (08:37)
[2017-07-21] MEDS: SILVER SULFADIAZINE 1% CREAM 50GM TOP SCH (08:38)
[2017-07-21] MEDS: NYSTATIN POWDER 15GM TOP SCH ×2 (08:38→17:23)
[2017-07-21] MEDS: LEVOFLOXACIN 500MG TABLET PO SCH (11:48)
[2017-07-21] MEDS: TRAMADOL 50MG TABLET PO PRN ×2 (11:52→18:30)
== END 2017-07-21 19:10 | DRG 871 ==
LOC: ER 11:36 → CANRESERV 12:49 → ENRESERV 12:49 → CVICU 14:14 → EDBEDREQ 14:25 → EDBEDREQSVC 14:25 → ENRESERV 20:12 → EDBEDREQ 21:12 → 8WST 07-16 18:00
PROVIDERS: ADMIT Internal Medicine; ATTEND Internal Medicine
DX: A41.9 Sepsis, unspecified organism (principal); G93.40 Encephalopathy, unspecified; E44.0 Moderate protein-calorie malnutrition; E87.0 Hyperosmolality and hypernatremia; M48.00 Spinal stenosis, site unspecified; I10 Essential (primary) hypertension; E87.6 Hypokalemia; G89.29 Other chronic pain; I25.10 Atherosclerotic heart disease of native coronary artery without angina pectoris; N20.0 Calculus of kidney; F32.9 Major depressive disorder, single episode, unspecified; M19.90 Unspecified osteoarthritis, unspecified site; Z53.20 Procedure and treatment not carried out because of patient's decision for unspecified reasons; E11.65 Type 2 diabetes mellitus with hyperglycemia; Z79.899 Other long term (current) drug therapy; Z79.4 Long term (current) use of insulin; Z68.23 Body mass index [BMI] 23.0-23.9, adult
CPT/HCPCS: 36415; 36600; 71010; 74176; 80053; 82010; 82375; 82805; 82962; 83036; 83605; 83735; 83880; 84484; 85025; 85610; 87040; 93005; 96361; 96365; 96367; 96372; 96375; 97110; 97116; 97162; 97166; 99291; C9113; J0360; J0696; J1650; J1815; J1885; J1956; J2270; J2405; J2543; J3370; J3475; J3480; J7030; J7040; J7050; A4315